=== PATIENT | female | born 1945 | race Caucasian/White ===

== ENCOUNTER 2020-07-06 02:02 | Outpatient (CLI) | payer MEDICARE, SELFPAY ==
[2020-07-06 18:52] LABS: SARS-CoV-2 RNA PCR Negative
== END 2020-07-06 02:03 | disposition home or self-care (01) ==
LOC: ANHCOVIDDT 02:05
PROVIDERS: Visit Provider Dentist
DX: Z01.812 Encounter for preprocedural laboratory examination (principal); Z20.828 Contact with and (suspected) exposure to other viral communicable diseases
CPT/HCPCS: 87635; C9803; U0003

== ENCOUNTER 2020-07-09 00:50 | Day surgery (SDC) | payer MEDICARE, SELFPAY ==
[2020-07-03 14:30] VITALS: BMI 25.9
--- NOTE | 2020-07-09 07:21 | WPDHPUPDATE1 ---
History and Physical Update Update Date/Time: 07/09/20 07:21 History and Physical has been reviewed, including an updated exam of the patient. There are NO changes in the patient's condition. Risks, benefits, and alternatives have been discussed and questions answered. Patient agrees to proceed with procedure.
--- NOTE | 2020-07-09 07:21 | PM.IMHP ---
H&P: HPI History of Present Illness Date/Time: 07/09/20 07:21 Chief complaint: lesion in mandible Narrative: Leslee Van is a 74 year old female with lesion found on exam PMFSH Social History Social History Smoking status: Former smoker Tobacco type: cigarettes Additional smoking assessment comments: STATES 1/2 TO PK/DAY - QUIT 20+ YRS AGO Alcohol intake: current Drinks per week: 6 Substance use: never Substance use type: does not use Living arrangements: with family Spiritual care concerns: No Meds Home Medications and Allergies Home Medications Medication Instructions Recorded Confirmed Type omeprazole 20 mg QAM 07/03/20 07/03/20 History simvastatin 40 mg HS 07/03/20 07/03/20 History Allergies Allergy/AdvReac Type Severity Reaction Status Date / Time No Known Allergies Allergy Verified 07/03/20 14:29 Assessment and Plan Assessment and plan (1) Impacted third molar tooth: Code(s): K01.1 - Impacted teeth Status: Acute Assessment and Plan: remove #32 and biopsy lesion
--- NOTE | 2020-07-09 09:06 | SUR.PREOP ---
0900; SPOKE TO DR CAPPS. NO ANTIBIOTICS TODAY
[2020-07-09 09:19] VITALS: BMI 26.8
[2020-07-09 09:21] VITALS: BP 133/68; PULSE 67; RESP 16; TEMP 36.5; O2SAT 100
--- NOTE | 2020-07-09 09:22 | P.PNAN_ITS ---
Anes - Initial Pre Proc Eval Procedure: Operation Date: 07/09/20 09:00 Proposed Procedures p Biopy Lesion of Mandible Area of Tooth #32, - Moise Blood DMD s Extract Full Bony Impacted [place] Tooth #32 - Moise Blood DMD Date/Time: 07/09/20 09:22 Surgeon: Moise Blood DMD Pre Op Diagnosis: lesion in mandible Patient Data Age: 74 Gender: F Height: 1.68 m Weight: 75.3 kg Last Vital Signs Temp 36.5 C 07/09/20 09:21 Pulse 67 07/09/20 09:21 Resp 16 07/09/20 09:21 BP 133/68 07/09/20 09:21 Pulse Ox 100 07/09/20 09:21 Allergies Allergy/AdvReac Type Severity Reaction Status Date / Time No Known Allergies Allergy Verified 07/09/20 09:10 Home Medications Medication Instructions Recorded Confirmed Type omeprazole 20 mg QAM 07/03/20 07/09/20 History simvastatin 40 mg HS 07/03/20 07/09/20 History Patient hx anesthesia problems: none Family hx anesthesia problems: none PMFSH Past Medical History Medical History (Updated 07/09/20 @ 09:24 by Homar Cleaning MD) Chronic GERD Hypercholesterolemia Social History Social History Smoking status: Former smoker Tobacco type: cigarettes Additional smoking assessment comments: STATES 1/2 TO PK/DAY - QUIT 20+ YRS AGO Alcohol intake: current Drinks per week: 6 Substance use: never Substance use type: does not use Living arrangements: with family Spiritual care concerns: No Anes - Eval Final PreProcedure Day of Procedure 07/09/20 09:22 Patient weight: overweight Heart: regular rate and rhythm Lungs: clear to auscultation and normal air movement Airway: Mallampati scale class II Neurological: alert and oriented Last oral intake: >/= 8 hours ASA classification: II Emergent: no Anesthetic plan: proceed Anesthesia type and monitoring: general GIVS and ETT Informed Consent: The patient's anesthetic plan and its attendant risks and benefits were discussed with the patient/family/POA. Questions were solicited and answers provided to the satisfaction of the patient/family/POA.
[2020-07-09] MEDS: LACTATED RINGERS 1,000 ML 30 ML IV CONT (09:37)
[2020-07-09] MEDS: LIDOCAINE 2%-EPI (FOR DENTAL BLOCK) 1.7 ML CARTRIDGE INFILTRATE (09:52)
[2020-07-09 10:11] VITALS: BP 135/80; PULSE 73; RESP 16; TEMP 36; O2SAT 99
--- NOTE | 2020-07-09 10:14 | P.OP_ITS ---
Procedure Note - Detailed Date of procedure: 07/09/20 Pre-op diagnosis: lesion in mandible Surgeon: Moise Blood, LUPE preoperative diagnosis impacted tooth number 32 and associated mandibular lesion postop diagnosis same procedure surgical removal of tooth number 32 and enucleation of lesion right mandible. Co mplications none estimated blood loss 10cc local anesthetic 3cc of 2% lidocaine with 1 100,000 epinephrine description of the procedure patient was encountered in in the operating room under the care of the anesthesia service who induced a general anesthetic. Patient was draped in the usual manner for an intraoral surgical procedure. Local anesthetic was administered. Oral cavity was suctioned free of debris and throat pack was placed. Fifteen blade was used to make a 3rd molar incision in the area of number 32 and a full-thickness flap was elevated to the buccal. Bone overlying tooth number 32 was removed and the tooth was sectioned and removed using elevator and forceps technique without complication. The cystic lesion was enucleated from the bony crypt and sent for specimen. The inferior alveolar nerve was visualized intact. The lesion was easily from the nerve. The wound was then thoroughly irrigated and closed using 4.0 chromic gut suture in interrupted fashion. The oral cavity was suctioned free of debris and throat pack was removed. Care the patient was returned to the anesthesia service who extubated the patient transferred to recovery in stable condition. End
[2020-07-09 10:25] VITALS: BP 134/75; PULSE 64; RESP 16; O2SAT 96
[2020-07-09 10:37] VITALS: BP 136/65; PULSE 60; RESP 18; O2SAT 97
[2020-07-09 10:40] VITALS: BP 133/81; PULSE 62; RESP 14
[2020-07-09 11:10] VITALS: BP 140/74; PULSE 56; RESP 14
== END 2020-07-09 11:35 | disposition home or self-care (01) ==
PROVIDERS: Visit Provider Dentist
PROC: (CPT 20240; principal; 2020-07-09 09:00)
PROC: (CPT 41899; 2020-07-09 09:00)
DX: K01.1 Impacted teeth (principal); M27.8 Other specified diseases of jaws; E78.00 Pure hypercholesterolemia, unspecified; K21.9 Gastro-esophageal reflux disease without esophagitis; Z87.891 Personal history of nicotine dependence
CPT/HCPCS: 21040; D7240; J0330; J1100; J2405; J2704; J7120